=== PATIENT | male | born 1980 | race Caucasian/White ===

== ENCOUNTER 2017-08-23 12:01 | Emergency (ER) | payer SELFPAY ==
[2017-08-23 12:11] VITALS: TEMP 98.1; BMI 16.9
--- NOTE | 2017-08-23 12:52 | PDOC ---
Attending Attestation - Resident Resident Name: Dani Ortega - ED Attending Attestation I have performed the following: I have examined & evaluated the patient, The case was reviewed & discussed with the resident, I agree w/resident's findings & plan, Exceptions are as noted - HPI HPI: 08/23/17 12:43 36y M no pmhx presents with complaint of n/v/d since last night, vomiting non bloody, no melena/blood in diarrhea. Pt states the vomiting started suddenly overnight and was mtulitple episodes - last episode was around 5am. Pt notes feeling nauseus otherwise - was noted to have bgm of 60 byEMS, and given some jam. pt denies any fever/chills, abd pain, blood in diarrhea, hemetemsis. 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 HEAD: Normocephalic, atraumatic.. ENT: Normal voice, Moist mucous membranes. ABDOMEN: Soft, nontender, normoactive bowel sounds. No guarding, no rebound. . NEUROLOGICAL: No facial assymetry, Normal speech, mpoving all 4 exremties spontaneously and symmetrically PSYCH: Normal mood, normal affect. SKIN: Warm, Dry, normal turgor, suspect gastroenteritis pt fgeeling much improved here - was given zofran by EMS able to tolerate oral intake bGM here was normal abd soft nontender will give pt some zofran return precautions were discussed - Physicial Exam PE: 08/25/17 08:19 see above - Medical Decision Making 08/25/17 08:19 see above
--- NOTE | 2017-08-23 13:04 | PDOC ---
History of Present Illness - General Chief Complaint: Blood Sugar Problem Stated Complaint: LOW BLOOD SUGAR Time Seen by Provider: 08/23/17 12:10 - History of Present Illness Initial Comments: 08/23/17 12:41 Pt is a 36 y/o M with no significant PMH who presents to ED with nausea, vomiting, and diarrhea. 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 He felt his throat swelling, so he left the area and felt better. Later at 10:30 he ate chicken wings. Around 1:30am this morning he had sudden onset of nausea, and bouts of green/brown nonbloody vomiting and watery nonbloody diarrhea lasting until around 5am. He also complained of blurry vision and fatigue. En route to hospital he was given jam and IV zofran and is feeling much better. No other complaints. Pt denies headache, fever, chills, cp, sob, abd pain. Past History - Past Medical History Allergies/Adverse Reactions: Allergies Allergy/AdvReac Type Severity Reaction Status Date / Time No Known Allergies Allergy Verified 08/23/17 12:11 COPD: No Diabetes: No (hypoglycemia) - Suicide/Smoking/Psychosocial Hx Smoking History: Current every day smoker Have you smoked in the past 12 months: No Number of Cigarettes Smoked Daily: 10 Information on smoking cessation initiated: No Hx Alcohol Use: No Drug/Substance Use Hx: No Substance Use Type: None Review of Systems - Review of Systems Able to Perform ROS?: Yes Is the patient limited Vietnamese proficient: No Constitutional: Yes: Symptoms Reported, Weakness. No: Chills, Fever HEENTM: Yes: Symptoms Reported, Blurred Vision, Throat Swelling (resolved). No : Nose Congestion, Throat Pain, Mouth Pain, Difficulty Swallowing, Mouth Swelling Respiratory: Yes: Symptoms reported. No: Cough, Shortness of Breath, Stridor, Wheezing, Productive cough Cardiac (ROS): Yes: Symptoms Reported. No: Chest Pain, Irregular Heart Rate, Palpitations, Chest Tightness ABD/GI: Yes: Symptoms Reported, Diarrhea, Vomiting. No: Abdominal Distended, Abd. Pain w/ defecation, Blood Streaked Bowels, Difficulty Swallowing, Poor Appetite, Poor Fluid Intake : Yes: Symptoms Reported. No: Burning, Dysuria, Discharge, Hematuria Integumentary: Yes: Symptoms Reported. No: Erythema, Flushing, Lesions, Rash *Physical Exam - Vital Signs Last Vital Signs Temp Pulse Resp BP Pulse Ox 98.1 F 78 18 127/90 100 08/23/17 12:01 08/23/17 12:01 08/23/17 12:01 08/23/17 12:01 08/23/17 12:01 - Physical Exam General Appearance: Yes: Nourished, Appropriately Dressed. No: Apparent Distress HEENT: positive: EOMI, ESPERANZA, Normal ENT Inspection, Normal Voice, Symmetrical. negative: Pale Conjunctivae, Photophobia, Muffled/Hoarse voice, Pharyngeal Erythema, Tonsillar Exudate, Tonsillar Erythema Neck: positive: Trachea midline, Supple. negative: Tender, Stridor Respiratory/Chest: positive: Lungs Clear, Normal Breath Sounds. negative: Chest Tender, Respiratory Distress Cardiovascular: positive: Regular Rhythm, Regular Rate, S1, S2. negative: Edema , JVD, Murmur Vascular Pulses: Dorsalis-Pedis (R): 2+, Doralis-Pedis (L): 2+ Gastrointestinal/Abdominal: positive: Flat, Soft, Increased Bowel Sounds. negative: Tender, Organomegaly, Pulsatile Mass Extremity: positive: Tender (mild left knee tenderness to palpation and with L thigh adduction) Integumentary: positive: Normal Color. negative: Diaphoresis, Hives, Petechiae , Rash Neurologic: positive: information consultant II-XII NML intact, Fully Oriented, Alert, Normal Mood/ Affect, Normal Response, Motor Strength 5/5 Medical Decision Making - Medical Decision Making 08/23/17 13:07 Pt is a 36 y/o M with shellfish allergy who presented to ED after approximately 5 hrs of nonbloody vomiting and diarrhea beginning roughly 3hrs after a meal of chicken wings and ending approximately 7 hrs ago. Allergic reaction -Pt felt throat tightness at work after being around cooking shellfish. Has been without symptoms for roughly 16 hrs vomiting/diarrhea -resolved. Likely 2/2 food poisoning. -PO challenge *DC/Admit/Observation/Transfer Diagnosis at time of Disposition: Food contamination - Discharge Dispostion Disposition: HOME Condition at time of disposition: Good Admit: No - Referrals - Patient Instructions Additional Instructions: Please make sure you see your primary care doctor and ask about an Epi pen. Please make sure you stay hydrated in general, but especially over the next few days. Also, try to have more frequent small meals to prevent possible blood sugar irregularities. If your symptoms recur, or if you develop new symptoms, please return to the emergency department immediately. - Post Discharge Activity
[2017-08-23 14:24] VITALS: BP 115/76; PULSE 79
== END 2017-08-23 14:23 | disposition home or self-care (01) ==
LOC: JER 12:01
DX: A05.9 Bacterial foodborne intoxication, unspecified (principal)
CPT/HCPCS: 82962; 99282-25